=== PATIENT | male | born 1975 | race Two or more races ===

== ENCOUNTER 2022-04-02 16:19 | Emergency (ER) | payer SELFPAY ==
[~2022-04-02] VITALS: Ht 170.2 cm; Wt 90.9 kg
[2022-04-02 16:45] VITALS: BP 131/92
== END 2022-04-02 18:26 ==
LOC: ER 16:21
DX: Z04.1 Encounter for examination and observation following transport accident (principal); Z72.89 Other problems related to lifestyle; V89.2XXA Person injured in unspecified motor-vehicle accident, traffic, initial encounter; Y93.89 Activity, other specified; Y92.89 Other specified places as the place of occurrence of the external cause; Y99.8 Other external cause status
CPT/HCPCS: 99283